=== PATIENT | female | born 1980 | race Caucasian/White ===

== ENCOUNTER 2017-04-01 10:39 | Emergency (ER) | payer SELFPAY ==
--- NOTE | 2017-04-08 18:56 | ER ---
ADMIT: 04/01/2017 RM/LOC: ER [facility] MR#: [id number] [facility] [id number] [place]O [address] [place] [address] Emergency Room Report SEX: F AGE: 36 : 1980 DATE: 04/01/2017 This is a 36-year-old white female came with left heel and foot pain. X-ray is negative. This is probably a sprain. Tylenol or Motrin and then follow up as needed. CONDITION ON DISCHARGE: Good. Rogerio Veliz MD/ jasmyn JOB #: [id number] CC: Rogerio Veliz MD, Attending Physician Ananda Landon MD, Family Physician
== END 2017-04-01 12:10 | disposition home or self-care (01) ==
LOC: ER 10:39
DX: S93.621A Sprain of tarsometatarsal ligament of right foot, initial encounter (principal); X58.XXXA Exposure to other specified factors, initial encounter; Y92.009 Unspecified place in unspecified non-institutional (private) residence as the place of occurrence of the external cause; Z88.1 Allergy status to other antibiotic agents